=== PATIENT | male | born 1960 | race Caucasian/White ===

== ENCOUNTER 2021-09-11 11:12 | Emergency (ER) | payer OTHER ==
[~2021-09-11] VITALS: Ht 190.5 cm; Wt 102.1 kg
[2021-09-11 12:09] LABS: BASOPHIL 0.3 % (0-2); EOSINOPHIL 0.6 % (0-5); HCT 45.7 % (42.0-52.0); LYMPHOCYTE 11.9 % (15-48); MCH 33.5 pg (25.0-31.0); MCV 95.8 fL (78.0-100.0); MPV 9.8 fL (6.0-9.5); NEUTROPHIL 77.5 % (41-80); NRBC 0; PLT 157 K/uL (150-400); RBC 4.77 M/uL (4.70-6.00); RDW 11.1 % (11.5-14.0); WBC 6.8 K/uL (4.0-10.5)
[2021-09-11 12:23] LABS: BUN/CREAT RATIO (CALC) 16.7 RATIO; CREATININE 0.96 mg/dL (0.67-1.17)
[2021-09-11] MEDS ORDERED: AZITHROMYCIN250 MG PO (12:40)
== END 2021-09-11 12:53 | disposition home or self-care (01) ==
LOC: FER 11:12 → EDBD 11:12 → FER 12:53
PROVIDERS: Emergency Medicine
DX: U07.1 COVID-19 (principal)
CPT/HCPCS: 36415; 71045; 80048; 85025